=== PATIENT | male | born 1995 | race Caucasian/White ===

== ENCOUNTER 2024-05-31 16:55 | Emergency (ER) | payer BC, SELFPAY ==
[2024-05-31 16:57] VITALS: BP 132/90; PULSE 78; RESP 18; TEMP 36.9; O2SAT 96; BMI 34.0
--- NOTE | 2024-05-31 17:24 | CT_ITS ---
PROCEDURE INFORMATION: Exam: CT Head Without Contrast Exam date and time: 05/31/2024 6:01 PM Age: 29 years old Clinical indication: Pain; Headache; Migraine TECHNIQUE: Imaging protocol: Computed tomography of the head without contrast. Radiation optimization: All CT scans at this facility use at least one of these dose optimization techniques: automated exposure control; mA and/or kV adjustment per patient size (includes targeted exams where dose is matched to clinical indication); or iterative reconstruction. COMPARISON: No relevant prior studies available. FINDINGS: Brain: Normal. No hemorrhage. Unremarkable white matter. No mass effect. Cerebral ventricles: No ventriculomegaly. Paranasal sinuses: Visualized sinuses are unremarkable. No fluid levels. Mastoid air cells: Visualized mastoid air cells are well aerated. Bones: Unremarkable. No acute fracture. Soft tissues: Unremarkable. IMPRESSION: No acute intracranial abnormality.
--- NOTE | 2024-05-31 17:27 | HMH.EDGENADL ---
Discharge Plan Disposition Patient Disposition: Home, Self-Care Condition: Good Referrals Follow up/Referrals: Provider,Referral, MD [Primary Care Provider] - See instructions Activity Restrictions/Add. Instructions Additional Instructions/Restrictions: You were evaluated in the emergency department today. Please follow-up very closely with your primary care provider using the list provided to you. Take Tylenol and ibuprofen at home as needed for recurrence of symptoms. Return to the emergency department for new or worsening symptoms. Clinical Impressions Clinical Impression: Migraine Stand Alone Forms Stand Alone Forms: Work/School Release Instructions Patient Instructions: DI for Migraine, DI for Headache Print Language Print Language: Icelandic Discharge ED Provider: Yi Yarbrough General Adult HPI General Chief complaint: Headache Stated complaint: severe h/a, vomiting, abd pain, blurred vision Time Seen by Provider: 05/31/24 16:58 Mode of Arrival: Ambulatory Source of Information: Patient Limitations: No Limitations Description of Symptoms (Recalled from ER Triage Doc. by RN): pt presents to ED with c/o headache, blurry vision. pt reports that he has been feeling weird since 1400 today. pt reports nausea as well. History of Present Illness HPI narrative: This patient is a 29-year-old male who denies significant past medical history presenting to the emergency department for evaluation with concern for headache. Patient reports that on Friday, he had a visual disturbance which looked like a blurry rainbow colored halo. Afterward, he started develop a headache, but he took medication and lay down and the headache went away. Today, the same thing started around 2:00 PM with a visual aura, and the headache followed. He has had nausea and vomiting as result of the headache also. No fevers or infectious symptoms noted. The headache was gradual in onset as opposed to being sudden thunderclap. He denies experiencing anything like this in the past. He currently has the headache on the right side of his head behind his right eye that feels like a pressure and throbbing as well as nausea, photophobia, phonophobia. No other neurologic deficits noted. Related Data Allergies Allergy/AdvReac Type Severity Reaction Status Date / Time No Known Allergies Allergy Verified 05/31/24 17:22 [facility] Disclaimer: The information contained in this section may have been updated after the patient was seen, as this information can be updated by other users. Social History (Reviewed 05/31/24 @ 17:28 by CHERYL Reardon Smoking Status: Current every day smoker alcohol intake: never current occupational status: employed Travel in the last 8 weeks: None ROS Obtained: Yes All systems reviewed & no additional complaints except as documented Physical Exam General General appearance: alert and in no apparent distress Head Head exam: atraumatic and normocephalic Eye Eye exam: Present normal appearance, PERRL and EOMI ENT ENT exam: Present normal exam, normal oropharynx, mucous membranes moist and normal external ear exam Neck Neck exam: Present normal inspection, full ROM and trachea midline; Absent tenderness Chest Chest inspection: Present normal inspection and symmetric chest wall rise; Absent tenderness Respiratory Respiratory exam: Present normal lung sounds bilaterally; Absent respiratory distress, wheezes, stridor or accessory muscle use Cardiovascular Cardiovascular exam: Present regular rate and normal rhythm Abdominal Exam Abdominal exam: Present soft; Absent distention, tenderness or guarding Extremities Exam Extremities exam: Present normal inspection, full ROM and normal capillary refill; Absent tenderness or edema Back Exam Back exam: Present normal inspection and full ROM; Absent tenderness Neurological Exam Neurological exam: Present alert, oriented X3, CN II-XII intact and normal gait; Absent motor sensory deficit Psychiatric Psychiatric exam: Present normal affect and normal mood Skin Skin exam: Present warm and dry Medical Decision Making Medical Records Medical records reviewed: Yes I reviewed the patient's medical records. [place] Inquiry Pt receiving controlled substance: No Vital Signs: 05/31/24 16:57 05/31/24 18:31 05/31/24 19:51 Temperature 98.4 F 97.8 F Temperature Source Oral Oral Pulse Rate 72 90 Pulse Rate [Left Radial] 78 Respiratory Rate 18 16 Blood Pressure 126/87 132/78 Blood Pressure [Right Arm] 132/90 Blood Pressure Mean 97 Blood Pressure Mean [Right Arm] 104 Blood Pressure Source Automatic Cuff Blood Pressure Position Sitting 02 Sat by Pulse Oximetry 96 99 Oxygen Delivery Method Room Air Room Air Lab Data Lab results reviewed: Yes I reviewed the patient's lab results. Orders (Tests/Meds): ED MEDICATIONS Discontinued Medications Generic Name Dose Route Start Last Admin Trade Name Freq PRN Reason Stop Dose Admin Acetaminophen 1,000 mg 05/31/24 18:31 05/31/24 18:42 Acetaminophen 1,000mg/100ml Vial IV 05/31/24 18:32 1,000 mg ONCE ONE Administration Dexamethasone Sodium Phosphate 10 mg 05/31/24 17:25 05/31/24 17:56 Dexamethasone 4mg/Ml 1ml Vial IV 05/31/24 17:26 10 mg ONCE ONE Administration Diphenhydramine HCl 25 mg 05/31/24 17:24 05/31/24 17:56 Diphenhydramine 50mg/Ml Vial IV 05/31/24 17:25 25 mg ONCE ONE Administration Diphenhydramine HCl 25 mg 05/31/24 18:31 05/31/24 18:41 Diphenhydramine 50mg/Ml Vial IV 05/31/24 18:32 25 mg ONCE ONE Administration Lactated Ringer's 1,000 mls @ 999 mls/hr 05/31/24 17:24 05/31/24 17:57 Lactated Ringer's 1000 Ml Bag IV 05/31/24 18:24 999 mls/hr .Q1H1M ONE Administration Ketorolac Tromethamine 15 mg 05/31/24 17:24 05/31/24 17:57 Ketorolac 30mg/Ml Vial IV 05/31/24 17:25 15 mg ONCE ONE Administration Ketorolac Tromethamine 15 mg 05/31/24 18:31 05/31/24 18:41 Ketorolac 30mg/Ml Vial IV 05/31/24 18:32 15 mg ONCE ONE Administration Metoclopramide HCl 10 mg 05/31/24 17:24 05/31/24 17:56 Metoclopramide Hcl 10mg/2ml Vial IVP 05/31/24 17:25 10 mg ONCE ONE Administration Prochlorperazine Edisylate 5 mg 05/31/24 18:31 05/31/24 18:41 Prochlorperazine 10mg/2ml Vial IV 05/31/24 18:32 5 mg ONCE ONE Administration ORDERS Category Date Time Status CT head/brain wo con Stat Cat Scan 05/31/24 17:24 Completed Medical Decision Narrative: In summary, this patient is a 29-year-old male presenting to the Emergency Department for evaluation of headache with a preceding visual disturbance. Differential diagnoses considered include but are not limited to migraine with aura, tension headache, cluster headache, intracranial hemorrhage, intracranial mass. Ruling out the most morbid conditions drove assessment. On exam, the patient is well-appearing. He is neurologically intact with no meningismus. He is afebrile. Based on his symptoms, favor migraine with aura. Workup included CT head without contrast. He was given a bolus of IV fluids as well as IV Reglan, Toradol, Benadryl, and dexamethasone for symptomatic improvement. I independently interpreted CT scan prior to the radiologist read and noted no obvious intracranial hemorrhage or space-occupying lesion. Please see their read for final interpretation. On reassessment, patient had some improvement after migraine cocktail, but he complains that his head is still really hurting. Given this, he was given IV Compazine and IV acetaminophen to assess for further symptomatic improvement. This did help his symptoms. he remained neurologically intact throughout his ED stay with reassuring vital signs on cardiac telemetry. Given this, I feel it is appropriate for discharge home with diagnosis of migraine and instructions for close outpatient follow-up and supportive management. Strict return precautions were given and he was discharged after all questions were answered. Critical Care Critical Care Time Critical Care Time: No
[2024-05-31] MEDS: METOCLOPRAMIDE HCL 10MG/2ML VIAL 10 MG IVP (17:56)
[2024-05-31] MEDS: diphenhydrAMINE 50MG/ML VIAL 25 MG IV ×2 (17:56→18:41)
[2024-05-31] MEDS: DEXAMETHASONE 4MG/ML 1ML VIAL 10 MG IV (17:56)
[2024-05-31] MEDS: KETOROLAC 30MG/ML VIAL 15 MG IV ×2 (17:57→18:41)
[2024-05-31] MEDS: LACTATED RINGERS 1000ML 1,000 ML 999 ML IV (17:57)
[2024-05-31 18:31] VITALS: BP 126/87; PULSE 72; O2SAT 99
[2024-05-31] MEDS: PROCHLORPERAZINE 10MG/2ML VIAL 5 MG IV (18:41)
[2024-05-31] MEDS: ACETAMINOPHEN 1,000MG/100ML VIAL 1000 MG IV (18:42)
[2024-05-31 19:51] VITALS: BP 132/78; PULSE 90; RESP 16; TEMP 36.6; O2SAT 98
== END 2024-05-31 19:53 | disposition home or self-care (01) ==
PROVIDERS: Emergency Provider Emergency Medicine
DX: G43.909 Migraine, unspecified, not intractable, without status migrainosus (principal); R11.2 Nausea with vomiting, unspecified; F17.210 Nicotine dependence, cigarettes, uncomplicated
CPT/HCPCS: 70450; 96361; 96374; 96375; 96376; 99284; J0131; J0780; J1100; J1200; J1885; J2765; J7120

== ENCOUNTER 2024-09-08 10:33 | Emergency (ER) | payer BC, SELFPAY ==
--- NOTE | 2024-09-08 11:13 | ED_ITS ---
Discharge Plan Disposition Patient Disposition: Home, Self-Care Condition: Good Prescriptions Prescriptions: New amoxicillin 875 mg tablet 875 mg PO Q12H Qty: 20 0RF benzonatate 100 mg capsule 100 mg PO TIDP PRN (Reason: Cough) Qty: 30 0RF ibuprofen [IBU] 800 mg tablet 800 mg PO Q8HP PRN (Reason: Moderate Pain) Qty: 30 0RF benzonatate 100 mg capsule 100 mg PO TIDP PRN (Reason: Cough) Qty: 30 0RF Referrals Follow up/Referrals: Provider,Referral, MD [Primary Care Provider] - See instructions Activity Restrictions/Add. Instructions Additional Instructions/Restrictions: Drink plenty of fluids. Take tylenol or ibuprofen for pain or fever. Take the medications as directed. Follow up with your regular doctor. GO TO THE ER FOR ANY WORSENING SYMPTOMS Clinical Impressions Clinical Impression: Pharyngitis, Acute viral syndrome Stand Alone Forms Stand Alone Forms: Work/School Release Instructions Patient Instructions: Sore Throat, DI for Pharyngitis/Tonsillopharyngitis -- Adult Print Language Print Language: Ukrainian Discharge ED Provider: Mamadou Estrada [facility] General Stated complaint: possible strep Time Seen by Provider: 09/08/24 11:13 Related Data Previous Rx's ?Medication ?Instructions ?Recorded amoxicillin 875 mg tablet 875 mg PO Q12H #20 tabs 09/08/24 benzonatate 100 mg capsule 100 mg PO TIDP PRN Cough #30 caps 09/08/24 benzonatate 100 mg capsule 100 mg PO TIDP PRN Cough #30 caps 09/08/24 ibuprofen 800 mg tablet (IBU) 800 mg PO Q8HP PRN Moderate Pain 09/08/24 #30 tabs Allergies Allergy/AdvReac Type Severity Reaction Status Date / Time No Known Allergies Allergy Verified 05/31/24 17:22 [facility] Disclaimer: The information contained in this section may have been updated after the patient was seen, as this information can be updated by other users. Social History (Updated 05/31/24 @ 20:23 by Yi Yarbrough DO) Smoking Status: Current every day smoker alcohol intake: never current occupational status: employed Travel in the last 8 weeks: None ROS Obtained: Yes All systems reviewed & no additional complaints except as documented Constitutional Constitutional: Reports chills and Reports fever(s) Eyes Eyes: Denies eye discharge ENT Ears, Nose, Mouth, and Throat: Reports as per HPI Cardiovascular Cardiovascular: Denies chest pain Respiratory Respiratory: Denies chest congestion and Reports cough Gastrointestinal Gastrointestingal: Reports nausea; Denies abdominal pain, constipation, cramping, diarrhea or vomiting Musculoskeletal Musculoskeletal: Denies arthralgias Integumentary/Breasts Skin/Breast: Denies rash Neurologic Neurologic: Denies paresthesias Physical Exam General General appearance: alert and in no apparent distress Head Head exam: atraumatic, normocephalic and normal inspection Eye Eye exam: Present normal appearance, PERRL and EOMI ENT ENT exam: Present mucous membranes moist and normal external ear exam Expanded ENT Exam TM/Canal exam: Bilateral TM: erythema and bulging Nose exam: Absent sinus tenderness Mouth exam: Present normal external inspection; Absent drooling Teeth exam: Present normal inspection Throat exam: Present tonsillar erythema, tonsillomegaly and tonsillar exudate Neck Neck exam: Present normal inspection, full ROM and trachea midline; Absent tenderness, meningismus or lymphadenopathy Chest Chest inspection: Present normal inspection and symmetric chest wall rise; Absent tenderness Respiratory Respiratory exam: Present normal lung sounds bilaterally; Absent respiratory distress, wheezes, stridor or accessory muscle use Cardiovascular Cardiovascular exam: Present regular rate and normal rhythm; Absent systolic murmur or diastolic murmur Abdominal Exam Abdominal exam: Present soft and normal bowel sounds; Absent distention, tenderness, guarding, rebound or rigidity Extremities Exam Extremities exam: Present normal inspection and normal capillary refill; Absent calf tenderness Back Exam Back exam: Present normal inspection and full ROM; Absent tenderness, CVA tenderness (R) or CVA tenderness (L) Neurological Exam Neurological exam: Present alert, oriented X3 and CN II-XII intact Psychiatric Psychiatric exam: Present normal affect and normal mood Skin Skin exam: Present warm, dry, intact and normal color Medical Decision Making Medical Records Medical records reviewed: No I reviewed the patient's medical records. Screening: Per USPSTF and CDC recommendations, given the prevalence of disease in our region, it is our hospital?s policy to screen for HIV and viral Hepatitis for all patients aged 18 and over and those with ongoing risk factors. [place] Inquiry Pt receiving controlled substance: No Lab Data Lab results reviewed: Yes I reviewed the patient's lab results.
[2024-09-08 11:14] VITALS: BP 124/86; PULSE 86; RESP 20; TEMP 36.8; O2SAT 96; BMI 35.2
[2024-09-08 11:30] LABS: UTC Strep Screen (Rapid) Negative (Negative)
[2024-09-08 11:46] VITALS: BP 124/86; PULSE 86; RESP 20; TEMP 36.8
[2024-09-08 11:54] LABS: Coronavirus 19, PCR Not Detected (NotDetected); Influenza A, PCR Not Detected (NotDetected); Influenza B, PCR Not Detected (NotDetected)
== END 2024-09-08 11:49 | disposition home or self-care (01) ==
PROVIDERS: Emergency Provider Nurse Practitioner Family
DX: J02.9 Acute pharyngitis, unspecified (principal); B34.9 Viral infection, unspecified
CPT/HCPCS: 87636; 87880; 99213; G0381